=== PATIENT | male | born 1975 | race Caucasian/White ===

== ENCOUNTER → 2020-02-14 | Outpatient (CLI) | payer BC | LOC: COL.RAD 07:30 | DX: N50.89 Other specified disorders of the male genital organs (principal) ==

== ENCOUNTER 2023-12-01 12:31 | Emergency (ER) | payer BC ==
[~2023-12-01] VITALS: Ht 185.4 cm; Wt 96.4 kg
[2023-12-01 12:42] VITALS: TEMP 98
[2023-12-01 14:34] LABS: BASO # 0.1 K/mm3 (0.0-0.2); BASO % 1.2 % (0.0-2.0); EOS # 0.4 K/mm3 (0.0-0.7); EOS % 5.7 % (0.0-4.0); GRAN # 3.7 K/mm3 (1.4-6.5); GRAN % 54.3 % (42.2-75.2); HEMATOCRIT 42.9 % (42.0-52.0); HEMOGLOBIN 14.8 g/dl (13.5-18.0); LYMPH # 1.9 K/mm3 (1.2-3.4); LYMPH % 28.3 % (20.0-51.0); MEAN CELL VOLUME 91 fl (80.0-100.0); MEAN CORPUSCULAR HEMOGLOBIN 31 pg (27-31); MEAN CORPUSCULAR HGB CONC 35 g/dl (33.0-37.0); MEAN PLATELET VOLUME 10.5 fl (7.4-10.4); MONO # 0.7 K/mm3 (0.1-0.6); MONO % 10.2 % (1.7-9.3); PLATELET COUNT 190 K/mm3 (130-400); RED BLOOD COUNT 4.73 M/mm3 (4.20-5.60); REDCELL DISTRIBUTION WIDTH-CV 12.5 % (11.5-14.5)
[2023-12-01 14:51] LABS: ALBUMIN 4.2 g/dL (3.5-5.0); BILIRUBIN,TOTAL 1.2 mg/dL (0.2-1.2); CALCIUM 9.7 mg/dL (8.4-10.2); CREATININE, serum 1.12 mg/dL (0.72-1.25); POTASSIUM 3.9 mEq/L (3.5-4.5); TOTAL PROTEIN 7.3 g/dl (6.2-8.1)
[2023-12-01] MEDS ORDERED: NS 100 ML IV SCH (15:05)
[2023-12-01] MEDS ORDERED: Iohexol 300 - 100 ML VIAL IV ONE (15:06)
[2023-12-01] MEDS ORDERED: BACTROBAN 22GM22 GM NAS (15:33)
[2023-12-01] MEDS ORDERED: CEPHALEXIN500 M1 PO (15:34)
[2023-12-01 16:12] VITALS: BP 129/91; PULSE 59
== END 2023-12-01 16:12 | disposition home or self-care (01) ==
LOC: COL.ER 12:31
PROVIDERS: Physician Assistant
DX: L98.9 Disorder of the skin and subcutaneous tissue, unspecified (principal)
CPT/HCPCS: Q9967